=== PATIENT | male | born 1970 | race Two or more races ===

== ENCOUNTER 2024-07-30 09:33 | Outpatient (AMB) | payer MEDICAID, SELFPAY ==
--- NOTE | 2024-07-30 09:54 | PD.ORTHCLVIS ---
Vital signs 07/30/24 09:55 Height 1.88 m Height Method Stated Weight 128.934 kg Weight Measurement Method Standing Scale BMI 36.4 BP 121/78 Blood Pressure Source Automatic Cuff Blood Pressure Location Left Upper Arm Position Sitting Respiration 19 Pulse 89 Pulse Source Monitor Temp 98.0 F Temp Source Temporal Artery Scan Pulse Oximetry (%) 97 Oxygen Delivery Method Room Air Med/Allergies Allergies & Medications Allergies No Known Drug Allergies Allergy (Verified 07/30/24 09:58) Medication Reconciliation meloxicam 7.5 mg tablet 7.5 mg PO QDAY #45 tabs 08/15/23 [Rx Confirmed 07/30/24] Exam Exam Patient is in no acute distress and is cooperative with the examination today. Breathing is nonlabored. In no respiratory distress. Patient has no paraspinal tenderness. Spinal deformity [cannot] be appreciated. The gait of the patient is [nonantalgic] Bilateral extremities were evaluated and demonstrates sensation intact to light touch. Palpable pedal pulses are present. He has venous stasis in both legs Bilateral knees were examined and the patient has full strength and range of motion.. The right hip was examined. Patient was able to flex to 90 degrees, adduct to 30 degrees, abduct to 40 degrees, internally rotate to 20 degrees, and externally rotate to 20 degrees. Patient has a negative logroll. Stinchfield is negative. The patient is nontender diffusely to touch. The left hip was examined. Patient was able to flex to [90] degrees, adduct to [30] degrees, abduct to [40] degrees, internally rotate to 0 degrees, and externally rotate to [20] degrees. Patient has a Positive logroll. The stinchfield is Positive. Left hip x-rays from [facility] were reviewed by me today. This demonstrates joint space obliteration and significant osteoarthritis. These x-rays are from May 2023 Assessment and Plan Problem List (1) Unilateral primary osteoarthritis, left hip: Status: Acute Plan: Patient is a pleasant 52-year-old male with a left hip pain and left hip osteoarthritis. He has lost a rapid amount of weight. I would like to see the weight plateau. He also has venous stasis changes so I do want to see what his ejection fraction and his cardiac doctor has said regarding surgical clearance. I discussed with him that we can do a total hip replacement once his weight plateaus. I would like to see new x-rays as the last ones have been over a year and a half old. (2) Chronic left hip pain: Status: Acute Office Procedures GNS Level of Care Nursing/Assessment Patient Status: Established Patient Nursing Assessment/Reassesment: Medication Reconciliation, Update PMH in EMR and Vital Signs Coordination of Care: Complex Care and Chronic Disease 1-5, Education Complex Pt/Fam, Consent,records obtained, informed consent, Results/Orders obtained and Staff clarify orders Established Patient Charge Established Patient Point Assignment: 95 Established Patient Point Charge: EP Level 3 (80-115) MA Intake Visit Data Collection New Patient or Established: Established Patient (seen at [facility] within 3 years) Reason for Visit:: LEFT HIP PAIN Seen by Clinical Staff ONLY (RN/MA): No Associate Professor Of Economics Required: No PCP or OBGYN visit in last 3 months: Yes Hx Now: No Do You Feel Safe at Home: Yes Authorities Contacted: N/A Questionairres Past Medical History Past Medical History Have you ever been diagnosed with any of the following: Stomache/Intestinal Problems Obesity: Yes Subjective Visit Visit for: follow up visit and hip Immunization / Flu Flu Vaccine in the Last 12 Months: No Flu Vaccine Exclusion Criteria: No Exclusion Criteria History of Present Illness Chief complaint: left hip pain Patient is a 53-year-old male with severe left hip arthritis. He is lost a significant amount of weight. He hsa lost over 70 pounds. He reports that he got a cardiac clearance recently. Pain Associated signs & symptoms: none Ambulatory data Ambulatory device: none Treatments Improvement with previous injections: No Improvement with PT: No Improvement with NSAIDS: no Review of Systems Review of Systems: All systems negative unless otherwise noted in HPI.
[2024-07-30 09:55] VITALS: BP 121/78; PULSE 89; RESP 19; TEMP 36.7; O2SAT 97; BMI 36.4
== END 2024-07-30 10:17 | disposition home or self-care (01) ==
PROVIDERS: Supervising Provider Orthopaedic Surgery Adult Reconstructive Orthopaedic Surgery; Visit Provider Orthopaedic Surgery Adult Reconstructive Orthopaedic Surgery
DX: M16.12 Unilateral primary osteoarthritis, left hip (principal); M25.552 Pain in left hip; G89.29 Other chronic pain; I87.8 Other specified disorders of veins
CPT/HCPCS: 99213; G0463

== ENCOUNTER → 2024-08-06 | Outpatient (CLI) | payer MEDICAID, SELFPAY ==
--- NOTE | 2024-08-06 08:47 | XR_ITS ---
Examination:Left hip AP, lateral, AP pelvis 3 views Technique: Hip AP lateral, AP pelvis, 3 views Exam date and time:August 06, 2024 0911 hrs. Indications: Left hip pain beginning 3 years ago. Findings: Prominent osteopenia Severe left hip osteoarthritis obliteration of the joint space Subarticular lucencies and fragmentation of the femoral head consistent with advanced avascular necrosis Moderate narrowing right hip joint No fractures Impression: Severe left hip osteoarthritis Significant avascular necrosis left femoral head.
== END | disposition home or self-care (01) ==
PROVIDERS: PCP Orthopaedic Surgery Adult Reconstructive Orthopaedic Surgery; Referring Provider Orthopaedic Surgery Adult Reconstructive Orthopaedic Surgery; Visit Provider Orthopaedic Surgery Adult Reconstructive Orthopaedic Surgery
DX: M16.12 Unilateral primary osteoarthritis, left hip (principal); M87.852 Other osteonecrosis, left femur
CPT/HCPCS: 73502

== ENCOUNTER 2024-08-16 11:27 | Outpatient (AMB) | payer MEDICAID, SELFPAY ==
--- NOTE | 2024-08-16 11:34 | ORTHONT_ITS ---
Vital signs 08/16/24 11:36 Height 1.88 m Height Method Stated Weight 123.632 kg Weight Measurement Method Standing Scale BMI 34.9 BP 113/76 Blood Pressure Source Automatic Cuff Blood Pressure Location Left Upper Arm Position Sitting Respiration 18 Pulse 94 Pulse Source Monitor Temp 97.8 F Temp Source Temporal Artery Scan Pulse Oximetry (%) 98 Oxygen Delivery Method Room Air Med/Allergies Allergies & Medications Allergies No Known Drug Allergies Allergy (Verified 08/16/24 11:36) Medication Reconciliation meloxicam 7.5 mg tablet 7.5 mg PO QDAY #45 tabs 08/15/23 [Rx Confirmed 08/16/24] Exam Exam Patient is in no acute distress and is cooperative with the examination today. Breathing is nonlabored. In no respiratory distress. Patient has no paraspinal tenderness. Spinal deformity [cannot] be appreciated. The gait of the patient is [nonantalgic] Bilateral extremities were evaluated and demonstrates sensation intact to light touch. Palpable pedal pulses are present. He has venous stasis in both legs Bilateral knees were examined and the patient has full strength and range of motion.. The right hip was examined. Patient was able to flex to 90 degrees, adduct to 30 degrees, abduct to 40 degrees, internally rotate to 20 degrees, and externally rotate to 20 degrees. Patient has a negative logroll. Stinchfield is negative. The patient is nontender diffusely to touch. The left hip was examined. Patient was able to flex to [90] degrees, adduct to [30] degrees, abduct to [40] degrees, internally rotate to 0 degrees, and externally rotate to [20] degrees. Patient has a Positive logroll. The stinchfield is Positive. Xrays of the left hip demonstrate significant left hip arthritis and joint space narrowing with complete obliteration of the joint space. Assessment and Plan Problem List (1) Unilateral primary osteoarthritis, left hip: Status: Acute Plan: Patient is a pleasant 52-year-old male with a left hip pain and left hip osteoarthritis. He has lost a rapid amount of weight. His weight has plateaud and his venous stasis and edema has resolved.Fernando has lost a total of 80 pounds and is now optimized from surgery. He is no longer swollen in his legs. We will thus plan for a total hip replacement through a lateral approach. His hip will be very difficult to dislocate given the fact that he has significant arthritis and osteophytes. We will plan for the surgery this month in approximately 2 weeks. The patient lives alone and may benefit from a retirement home or rehab placement. He has significant arthritis and is using a cane and is very limited currently. The nature and purpose of the total hip replacement, alternative method(s) of treatment, the material risks involved, and the possibility of complications were fully explained to the patient. The patient does NOT have any of the following contraindications to ROSALIE: - Active infection of the hip joint, OR - Active systemic bacteremia, OR - Active skin infection or open wound at surgical site, OR - Neuropathic arthritis, OR - Severe, rapidly progressive neurological disease, OR - Severe medical condition that makes risks of the surgery outweigh the potentia l benefit The patient was told the most common risks and complications associated with a total hip replacement include, but are not limited to: blood clots in the leg, fatal pulmonary embolism, dislocation of the prosthesis, intraoperative and postoperative fractures of the femur or acetabulum, infection, failure of the prosthesis or grafting materials, complications from anesthesia, reactions to blood transfusions, postoperative leg length inequality, instability of the hip replacement, nerve damage or injury, vascular injury, delayed wound healing, infection, other injury or even . In addition, there are risks associated with anesthesia given during this operation. Also, the patient was told that after undergoing a total hip replacement there may still be persistent pain or disability. The patient was informed that the success of this operation in part depends upon the mechanical devices which are going to be implanted and that these devices can fail or malfunction, and may need to be repaired or replaced and there are no guarantees as to the longevity of this device or its parts and that it or its parts could fail prematurely. The patient was also notified that during the course of surgery, there may be a need to use bone graft from donors, and that any bone graft used will be carefully screened for communicable diseases, including AIDS, hepatitis, Erick-Creutzfeldt, or other diseases, but despite the screening procedures, there is a small chance that they could contract one of these diseases. Finally, the patient was asked to follow completely and fully with all advice and recommended treatments, and that recovery and ultimate outcome are affected by their compliance with recommended treatment. We discussed the risks, benefits and treatment alternatives, and the patient is interested in proceeding with surgery. We will try to set this up as expeditiously as possible. (2) Chronic left hip pain: Status: Acute Office Procedures GNS Level of Care Nursing/Assessment Patient Status: Established Patient Nursing Assessment/Reassesment: Medication Reconciliation, Update PMH in EMR and Vital Signs Coordination of Care: Complex Care and Chronic Disease 1-5, Education Complex Pt/Fam, Consent,records obtained, informed consent, Results/Orders obtained and Staff clarify orders Established Patient Charge Established Patient Point Assignment: 95 Established Patient Point Charge: EP Level 3 (80-115) MA Intake Visit Data Collection New Patient or Established: Established Patient (seen at [facility] within 3 years) Reason for Visit:: 2 WEEK F/U XRAYS Seen by Clinical Staff ONLY (RN/MA): No Oral Pathologist Required: No PCP or OBGYN visit in last 3 months: Yes Hx Now: No Do You Feel Safe at Home: Yes Authorities Contacted: N/A Questionairres Past Medical History Past Medical History Have you ever been diagnosed with any of the following: Respiratory Problems Smoking: No Smoking Cessation Counseling: No Smoking Exposure: No Stomache/Intestinal Problems Obesity: Yes Subjective Visit Visit for: follow up visit and x-rays (RESULTS) Immunization / Flu Flu Vaccine in the Last 12 Months: No Flu Vaccine Exclusion Criteria: No Exclusion Criteria History of Present Illness Chief complaint: left hip pain Patient is a 53-year-old male with severe left hip arthritis. He is lost a significant amount of weight. He hsa lost over 70 pounds. He reports that he got a cardiac clearance recently. Pain Pain level (0-10): 0 Associated signs & symptoms: none Ambulatory data Ambulatory device: cane Treatments Improvement with previous injections: No Improvement with PT: No Improvement with NSAIDS: no Review of Systems Review of Systems: All systems negative unless otherwise noted in HPI.
[2024-08-16 11:36] VITALS: BP 113/76; PULSE 94; RESP 18; TEMP 36.6; O2SAT 98; BMI 34.9
== END 2024-08-16 12:03 | disposition home or self-care (01) ==
LOC: HODSRG 11:27
PROVIDERS: Supervising Provider Orthopaedic Surgery Adult Reconstructive Orthopaedic Surgery; Visit Provider Orthopaedic Surgery Adult Reconstructive Orthopaedic Surgery
DX: M16.12 Unilateral primary osteoarthritis, left hip (principal); M25.552 Pain in left hip; G89.29 Other chronic pain
CPT/HCPCS: 99213; G0463

== ENCOUNTER → 2024-08-26 | Outpatient (CLI) | payer MEDICAID, SELFPAY ==
--- NOTE | 2024-08-26 08:35 | XR_ITS ---
Examination: CT bilateral lower extremities, without contrast. 2-D sagittal reconstructions. 2-D coronal reconstructions. 3-D reconstructions. Date and time of exam:August 26, 2024 0818 hours INDICATIONS: Chronic left hip pain several years CTDI: vol (mGy):27.5 DLP: (mGycm):1122 Technique: Multiple 1.25 mm axial sections of the bilateral lower extremities without intravenous contrast have been obtained. 2-D sagittal and coronal reconstructions have been obtained. 3-D reconstructions have been obtained. Low dose protocols were performed. One or more of the following dose reduction techniques were used; automated exposure control, adjustment of the mA and/or KV according to patient size, use of iterative reconstruction technique. Findings: Severe left hip osteoarthritis Prominent avascular necrosis left femoral head Moderate narrowing right hip joint Mild to moderate narrowing medial joint space right knee Mild narrowing medial joint space left knee IMPRESSION: Severe left hip osteoarthritis Avascular necrosis left femoral head
== END | disposition home or self-care (01) ==
LOC: CDIM 07:33
PROVIDERS: PCP Orthopaedic Surgery Adult Reconstructive Orthopaedic Surgery; Referring Provider Orthopaedic Surgery Adult Reconstructive Orthopaedic Surgery; Visit Provider Orthopaedic Surgery Adult Reconstructive Orthopaedic Surgery
DX: M16.12 Unilateral primary osteoarthritis, left hip (principal); M87.852 Other osteonecrosis, left femur
CPT/HCPCS: 72192; 73700

== ENCOUNTER 2024-08-28 05:35 | Day surgery (SDC) | payer MEDICAID, SELFPAY ==
[2024-08-23 14:50] VITALS: BP 136/95; PULSE 77; RESP 19; TEMP 36.4; O2SAT 96
--- NOTE | 2024-08-26 09:45 | EKG_ITS ---
[facility] Test Date: 2024-08-26 Pat Name: LUZMA ESCOBAR Department: Room: - Gender: Male Hand Ii Thermal Cutter: SANJU : 1970 Requested By: Luis F Bernard Order Number: [id number] Reading MD: Luis F Bernard Measurements Intervals Alba Rate: 82 P: 0 ID: 114 QRS: 9 QRSD: 104 T: 4 QT: 359 QTc: 420 Interpretive Statements SINUS RHYTHM WITH SHORT ID INTERVAL LOW QRS VOLTAGE IN PRECORDIAL LEADS [QRS DEFLECTION < 1.0 mV IN CHEST LEADS] No previous ECG available for comparison /[id number]/S0/[id number].pdf
[2024-08-26 10:01] VITALS: BMI 36.3
[2024-08-26 11:01] LABS: Basophils % (Auto) 0 % (0-2.5); Eosinophils # (Auto) 0.2 Thou/mm3 (0.0-0.5); Eosinophils % (Auto) 2 % (0-10); Hematocrit 47.2 % (41.0-53.0); Hemoglobin 15.5 g/dL (13.5-16.0); Immature Granulocytes % (Auto) 0 % (0-0); Immature Granulocytes Auto 0.04 Thou/mm3 (0.00-0.00); Lymphocytes % (Auto) 31 % (10-50); Mean Corpuscular HGB Conc 32.8 g/dl (31.0-37.0); Mean Corpuscular Hemoglobin 29.4 pg (25.0-35.0); Mean Corpuscular Volume 90 fL (80-100); Monocytes # (Auto) 0.6 Thou/mm3 (0.0-0.8); Monocytes % (Auto) 7 % (0-12); Neutrophils # (Auto) 5.7 Thou/mm3 (1.8-7.7); Neutrophils % (Auto) 60 % (37-80); Nucleated Red Blood Cell % 0 /100 WBC (0); Platelet Count 359 Thou/mm3 (140-440); RDW Standard Deviation 55.6 fL (35.1-43.9); Red Blood Count 5.27 Miln/mm3 (4.50-5.90); White Blood Count 9.6 Thou/mm3 (3.8-10.6)
[2024-08-26 11:06] LABS: INR 1.1 (0.9-1.3); Partial Thromboplastin Time 28.2 Seconds (22.0-36.0); Prothrombin Time 11.8 Seconds (9.0-12.2)
[2024-08-26 11:10] LABS: Alanine Aminotransferase 21 U/L (10-49); Albumin, Serum 4.6 gm/dL (3.5-5.0); Albumin/Globulin Ratio 1.4 (1.2-2.2); Alkaline Phosphatase 81 U/L (46-116); Anion Gap 9 (7-16); Aspartate Amino Transferase 22 U/L (0-34); BUN/Creatinine Ratio 21 Ratio (12-20); Bilirubin,Total 0.9 mg/dL (0.3-1.2); Blood Urea Nitrogen 15 mg/dL (9-23); Calcium 10.2 mg/dL (8.3-10.6); Calcium (Corrected) 10.2 mg/dL (8.5-10.1); Carbon Dioxide 27.2 mMol/L (20.0-31.0); Chloride 105 mMol/L (98-107); Creatinine (Component) 0.7 mg/dL (0.6-1.3); Estimated Creatinine Clearance 160.4 mL/min (>60); Globulin 3.2 gm/dL (2.3-3.5); Glucose 99 mg/dL (74-106); Osmolality,Calculated 282 (275-295); Potassium 4.3 mMol/L (3.4-5.1); Sodium 141 mMol/L (136-145); Total Protein 7.8 gm/dL (5.7-8.2); eGFR > 60 See Note
--- NOTE | 2024-08-27 15:05 | SUR.PREOP ---
Attempted to get cardiac records from [facility], faxed a request, nothing received yet.
[2024-08-28] VITALS (25 sets, daily range): BP systolic 104–136; BP diastolic 70–92; PULSE 54–97; RESP 13–95; TEMP 36.1–36.7; O2SAT 94–100; BMI 36.2
[2024-08-28] MEDS: ACETAMINOPHEN 325 MG TABLET 650 MG PO (06:44)
[2024-08-28] MEDS: MELOXICAM 7.5 MG TABLET PO (06:44)
[2024-08-28] MEDS: PREGABALIN 75 MG CAPSULE PO (06:44)
[2024-08-28] MEDS: RINGERS LACTATED 1000 ML 1,000 ML 20 ML IV (06:45)
--- NOTE | 2024-08-28 08:57 | XR_ITS ---
Examination: Left hip 2 views TECHNIQUE: AP left hip 2 views Exam date and time: August 28, 2024 0821 hours INDICATIONS: Left hip arthroplasty today. FINDINGS: Total left hip arthroplasty. Satisfactory alignment. Mild osteopenia IMPRESSION: Total left hip arthroplasty with satisfactory alignment
--- NOTE | 2024-08-28 10:15 | ESOP_ITS ---
Date of Procedure 08/28/24 Pre Op Diagnosis left hip osteoarthritis Post Op Diagnosis left hip osteoarthritis Procedure left total hip replacement joellen lateral Findings full thickness cartilage loss and extensive femoral and acetabular osteophytes Procedure Description Indications: The patient is a 53y.o. year-old with a longstanding history of left hip pain. After considering the patient's condition and the impact of their hip injury on the patient's quality of life and risks of nonoperative treatment, total hip replacement was offered as a reasonable option. Prior to the surgery I discussed the nature of the hip replacement surgery including alternatives to surgery and the purpose of, and indications for proceeding with surgery. I discussed that this surgery is a shared decision between the patient and the surgeon. Risks and benefits and alternatives of the procedure have been explained to the patient and their family. Anesthesia complications and risks include but are not limited to stroke, heart attack, and . The surgical risks include but are not limited to infection, instability/dislocation, bleeding, nerve and blood vessel injury, deep vein thrombosis, pulmonary embolus, stiffness, pain, scar, need for reoperation, leg length discrepancy, thigh numbness, weakness, and mechanical failure of the implant including loosening, metal complications, metal allergy, wear or breakage. I discussed the expected recovery from surgery and the importance of compliance with all our pre and post-operative recommen dations in order to maximize the recovery. The patient/family understands the risks of loss of life, loss of limb and, loss of function and wishes to proceed. They understand they are at increased risk for infection given their history of smoking. A signed and witnessed consent was obtained and placed in the chart. Patient Positioning: The patient was placed in the lateral decubitus position on a standard table using a pegboard. An axillary role was placed. All extremities were padded to ensure adequate protection. A contreras catheter was aseptically inserted. Time Out: A timeout was performed prior to the procedure which verified the correct patient, positioning, operation to be performed, operative site, antibiotics, allergies, imaging, and any other concerns. All parties were in agreement. Procedure in detail: The operative site was cleaned and draped in the usual sterile fashion. A final timeout was performed with all parties in agreement. A modified anterolateral approach to the hip was utilized. A 16cm skin incision was made centered over the greater trochanter in line with the femur. This was taken down through skin and subcutaneous tissue using a 10 blade. Bleeding was controlled using electrocautery. The fascia was identified and split in line with the femur. The charnley retractor was then placed. The abductor insertion was identified and a split made in the anterior 1/3 of the tendon proximally. Retractors were placed and the gluteus minimus was visualized. A capsulotomy was made down to the femoral neck anterior to the minimus. A split was then made in the anterior 1/3 of the vastus lateralis. A retractor was then placed anterior to the femoral shaft, the tendon was tagged with #1 ethibond sutures and a U-shaped split was made in the anterior 1/3 of the abductor tendon being careful to leave enough tendon to re-attach. The hip was then gently externally rotated as the anterior tissues were taken down with the tendon and capsule as one sleeve. Once the anterior tissue had been release off of bone a bone hook was placed and the hip was gently dislocated. Retractors were placed around the femoral neck and the femoral neck osteotomy was then made to freshen up the cut. The femoral head removed. The leg was then placed in extension and retractors were placed anterior and posterior to the acetabulum. The inferior capsule was release to improved visualization and the labrum and osteophytes around the acetabulum were removed. The acetabulum was then reamed to bleeding bone with adequate wall coverage and the cup was impacted into place. Screws were then placed followed by the liner which was impacted and confirmed to be seated. We then turned our attention to the femur. The leg was brought into external rotation and the femur was exposed. A canal finder was used followed by a box osteotomy and the femur was broached sequentially. The trial stem was then left in and the hip was trialed using various neck offsets and head sizes until the appropriate size was found based on leg length, stability. Once we were satisfied with the construct a cross-table AP pelvis radiograph was obtained to confirm appropriate positioning and sizing. The hip was then dislocated and the trials were then removed and the final stem impacted into placed. The hip was then again trialed and the appropriate head size identified. The zuñiga taper was then cleaned and dried and the final head impact into place and tested. The acetabulum was irrigated and confirmed to be free of debris. The hip was then reduced and taken through range of motion. The hip was stable in abduction and external rotation, adduction and external rotation, flexion past 90 degrees and internal rotation past 20 degrees. It did not sublux throughout range of motion and no impingement was detected. Leg lengths were appropriately restored based on preoperative leg lengths and intraoperative testing. . The hip was then copiously irrigated with dilute betadine followed by normal saline. The hip was then injected with the cocktail per protocol The hip was the closed in layers. The abductor tendon was closed with #1 ethibond. The fascia was closed with 0 Vicryl followed by an 0 V-lock. . The deep layer was closed with 0-Vicryl and the subcutaneous layer by a 2-0 Vicryl. The subdermal layer was closed with a 3-0 monocryl. The skin was then cleaned and dried and steri-s trips placed followed by a sterile dressing. The drapes were then taken down and the patient was placed supine. Leg lengths were confirmed to be appropriate and the patient's lower extremities were warm and well perfused with brisk capillary refill and palpable pulses. The patient was then awoken, transferred to the [facility] and taken to the PACU in stable condition. They tolerated the procedure well. The patient's family/caregiviers were made aware of their condition. Postoperative plan Activity: WBAT, no hip precautions , no active hip abduction DVT Prophylaxis: aspirin 81mg BID Antibiotics: Standard postoperative antibiotics x 24 hours Implants: [place] 60 cup, 1 screw, standard liner, 40+0 head, 10 insignia ho Anesthesia GETA Implants solitario Pathology / specimen None Pathology comment: none Estimated Blood Loss 150 Disposition same day Surgeon Ricardo Macias MD Surgical Staff Operation Date: 08/28/24 07:30 Case Staff MILL DRESSER: Benitez Sewell RNsuction plate roller hand: Pascale Costa
--- NOTE | 2024-08-28 10:18 | PD.SUROPNT ---
Date of Procedure 08/28/24 Pre Op Diagnosis left hip osteoarthritis Post Op Diagnosis left hip osteoarthritis Procedure left total hip replacement joellen lateral Findings full thickness cartilage loss and osteophytes Procedure Description Indications: The patient is a 53y.o. year-old with a longstanding history of left hip pain. After considering the patient's condition and the impact of their hip injury on the patient's quality of life and risks of nonoperative treatment, total hip replacement was offered as a reasonable option. Prior to the surgery I discussed the nature of the hip replacement surgery including alternatives to surgery and the purpose of, and indications for proceeding with surgery. I discussed that this surgery is a shared decision between the patient and the surgeon. Risks and benefits and alternatives of the procedure have been explained to the patient and their family. Anesthesia complications and risks include but are not limited to stroke, heart attack, and . The surgical risks include but are not limited to infection, instability/dislocation, bleeding, nerve and blood vessel injury, deep vein thrombosis, pulmonary embolus, stiffness, pain, scar, need for reoperation, leg length discrepancy, thigh numbness, weakness, and mechanical failure of the implant including loosening, metal complications, metal allergy, wear or breakage. I discussed the expected recovery from surgery and the importance of compliance with all our pre and post-operative recommendations in order to maximize the recovery. The patient/family understands the risks of loss of life, loss of limb and, loss of function and wishes to proceed. They understand they are at increased risk for infection given their history of smoking. A signed and witnessed consent was obtained and placed in the chart. Patient Positioning: The patient was placed in the lateral decubitus position on a standard table using a pegboard. An axillary role was placed. All extremities were padded to ensure adequate protection. A contreras catheter was aseptically inserted. Time Out: A timeout was performed prior to the procedure which verified the correct patient, positioning, operation to be performed, operative site, antibiotics, allergies, imaging, and any other concerns. All parties were in agreement. Procedure in detail: The operative site was cleaned and draped in the usual sterile fashion. A final timeout was performed with all parties in agreement. Hip array was first placed above the ASIS on the contratlateral side. A modified anterolateral approach to the hip was utilized. A 16cm skin incision was made centered over the greater trochanter in line with the femur. This was taken down through skin and subcutaneous tissue using a 10 blade. Bleeding was controlled using electrocautery. The fascia was identified and split in line with the femur. The charnley retractor was then placed. The abductor insertion was identified and a split made in the anterior 1/3 of the tendon proximally. Retractors were placed and the gluteus minimus was visualized. A capsulotomy was made down to the femoral neck anterior to the minimus. A split was then made in the anterior 1/3 of the vastus lateralis. A retractor was then placed anterior to the femoral shaft, the tendon was tagged with #1 ethibond sutures and a U-shaped split was made in the anterior 1/3 of the abductor tendon being careful to leave enough tendon to re-attach. The hip was then gently externally rotated as the anterior tissues were taken down with the tendon and capsule as one sleeve. Once the anterior tissue had been release off of bone a bone hook was placed and the hip was gently dislocated. Retractors were placed around the femoral neck and the femoral neck osteotomy was then made to freshen up the cut. The femoral head removed. The leg was then placed in extension and retractors were placed anterior and posterior to the acetabulum. The inferior capsule was release to improved visualization and the labrum and osteophytes around the acetabulum were removed. The acetabulum was then reamed to bleeding bone with adequate wall coverage and the cup was impacted into place. Both were performed with the aid of the StrongLoop robot. 1 Screw was then placed followed by the liner which was impacted and confirmed to be seated. We then turned our attention to the femur. The leg was brought into external rotation and the femur was exposed. A canal finder was used followed by a box osteotomy and the femur was broached sequentially. The trial stem was then left in and the hip was trialed using various neck offsets and head sizes until the appropriate size was found based on leg length, stability. Once we were satisfied with the construct a cross-table AP pelvis radiograph was obtained to confirm appropriate positioning and sizing. The hip was then dislocated and the trials were then removed and the final stem impacted into placed. The hip was then again trialed and the appropriate head size identified. The zuñiga taper was then cleaned and dried and the final head impact into place and tested. The acetabulum was irrigated and confirmed to be free of debris. The hip was then reduced and taken through range of motion. The hip was stable in abduction and external rotation, adduction and external rotation, flexion past 90 degrees and internal rotation past 20 degrees. It did not sublux throughout range of motion and no impingement was detected. Leg lengths were appropriately restored based on preoperative leg lengths and intraoperative testing. . The hip was then copiously irrigated with dilute betadine followed by normal saline. The hip was then injected with the cocktail per protocol The hip was the closed in layers. The abductor tendon was closed with #1 ethibond. The fascia was closed with 0 Vicryl followed by an 0 V-lock. . The deep layer was closed with 0-Vicryl and the subcutaneous layer by a 2-0 Vicryl. The subdermal layer was closed with a 3-0 monocryl. The skin was then cleaned and dried and steri-strips placed followed by a sterile dressing. The drapes were then taken down and the patient was placed supine. Leg lengths were confirmed to be appropriate and the patient's lower extremities were warm and well perfused with brisk capillary refill and palpable pulses. The patient was then awoken, transferred to the [facility] and taken to the PACU in stable condition. They tolerated the procedure well. The patient's family/caregiviers were made aware of their condition. Postoperative plan Activity: WBAT, no hip precautions , no active hip abduction DVT Prophylaxis: aspirin 81mg BID Antibiotics: Standard postoperative antibiotics x 24 hours Implants: Chanda 60 cup, 10 ho insignia, [1] screw, standard liner, 40+0 head Anesthesia GETA Implants chanda Pathology / specimen None Pathology comment: none Estimated Blood Loss 150 Surgeon Ricardo Macias MD Surgical Staff Operation Date: 08/28/24 07:30 Case Staff ALTITUDE CHAMBER TECHNICIAN: Benitez Sewell RNcounty director: Pascale Costa
--- NOTE | 2024-08-28 10:21 | XR_ITS ---
Examination:Left hip AP, lateral, AP pelvis 3 views Technique: Hip AP lateral, AP pelvis, 3 views Exam date and time:August 28, 2024 0947 hours INDICATIONS: Postop left hip replacement today. FINDINGS: Total left hip arthroplasty. Satisfactory alignment Moderate narrowing right hip joint Bones of the pelvis intact IMPRESSION: Total left hip arthroplasty with satisfactory alignment.
--- NOTE | 2024-08-28 10:40 | SUR.PHASEI ---
1040 Patient arrived to recovery resting comfortably in bed, on oxygen 8L via oxy mask with an oral airway and nasal airway in place, breathing unlabored, vital signs stable, dressing intact to left hip; prineo, telfa, abd, medipore tape, no bleeding noted, bilateral radial pulses present when palpated, bilateral dorsalis pedis pulses present when palpated, patient has good circulation to left lower extremity, skin color normal for patient and warm to touch, report received from Munira LAURA and Carlo ANAYA
--- NOTE | 2024-08-28 10:50 | SUR.PHASEI ---
1050 patient awake, post spinal anesthesia assessment via ice patient has dermatome sensation at L5 will monitor
--- NOTE | 2024-08-28 11:02 | SUR.PHASEI ---
1102 XRAY complete per MD order
--- NOTE | 2024-08-28 11:20 | SUR.PHASEII ---
1120 Post spinal anesthesia assessment complete patient has dermatome at S2 perineum
--- NOTE | 2024-08-28 12:45 | SUR.PHASEII ---
1208: pt awake, alert, able to follow commands, breathing unalbored, VS stable, dressing to left hip clean, dry, and intact, pt denies pain, report from Lashae Messer RN 1245: Report to Lashae Messer RN
--- NOTE | 2024-08-28 14:13 | SUR.PHASEII ---
1407 Report given to Terra RN, patient meets discharge criteria from recovery, awake and alert-talking with staff, breathing unlabored, vital signs stable, denies pain- states, It's just sore , dressing intact; no bleeding noted, patient eating ice cream; denies nausea 1413 Patient transported via bed to room 380 without incident, patient resting comfortably in bed with call light in reach when this fiction writer left patients room.
[2024-08-28] MEDS: metFORMIN 500 MG TABLET PO (20:18)
[2024-08-28] MEDS: amLODIPine BESYLATE 5 MG TABLET 10 MG PO (20:18)
[2024-08-28] MEDS: ASPIRIN EC 81 MG TABEC PO (20:20)
[2024-08-29 03:12] VITALS: PULSE 83; RESP 18; RESP 89; O2SAT 93
[2024-08-29 04:00] VITALS: BP 116/68; PULSE 71; RESP 18; TEMP 36.5; O2SAT 95
[2024-08-29] MEDS: oxyCODONE HCL 5 MG IR TAB 10 MG PO (07:05)
[2024-08-29 08:00] VITALS: BP 122/70; PULSE 75; RESP 18; TEMP 36.7; O2SAT 92
[2024-08-29] MEDS: metFORMIN 500 MG TABLET PO (08:17)
[2024-08-29] MEDS: PANTOPRAZOLE INJ 40 MG VIAL IV (08:17)
[2024-08-29] MEDS: ASPIRIN EC 81 MG TABEC PO (08:17)
[2024-08-29] MEDS: MELOXICAM 7.5 MG TABLET PO (08:18)
--- NOTE | 2024-08-29 10:54 | PC.NURSE ---
Per Dr. Macias, patient may be discharge once cleared by PT. Physical therapy came around 10:00 AM and stated that patient is cleared and good to go home. Discharged instructions given to the patient and papers signed at 10:30 AM. Patient waiting for his ride to go home.
[2024-08-29 12:00] VITALS: BP 125/73; PULSE 74; RESP 18; TEMP 36.7; O2SAT 93
== END 2024-08-29 12:28 | disposition home or self-care (01) ==
LOC: S2EX 10:22 → S3SX 09-02 07:43
PROVIDERS: Anesthesiology; Referring Provider Orthopaedic Surgery Adult Reconstructive Orthopaedic Surgery; Visit Provider Orthopaedic Surgery Adult Reconstructive Orthopaedic Surgery
PROC: (CPT 27130; principal; 2024-08-28 07:30)
DX: M16.12 Unilateral primary osteoarthritis, left hip (principal); Z01.810 Encounter for preprocedural cardiovascular examination
CPT/HCPCS: 27130; 20985; 36415; 73501; 73502; 80053; 85025; 85610; 85730; 87081; 93005; 94660; 97162; A4217; A4649; C1713; C1776; J0131; J1100; J2250; J2371; J2405; J2470; J2704; J3010; J3490; J7030; J7120; J7999; A4648; A9270; J1596

== ENCOUNTER 2024-10-24 12:54 | Outpatient (AMB) | payer MEDICAID, SELFPAY ==
--- NOTE | 2024-10-24 13:10 | PD.ORTHCLVIS ---
Vital signs 10/24/24 13:11 Height 1.85 m Height Method Stated Weight 115.779 kg Weight Measurement Method Standing Scale BMI 33.8 BP 127/87 H Blood Pressure Source Automatic Cuff Blood Pressure Location Right Upper Arm Position Sitting Respiration 18 Pulse 090 Pulse Source Monitor Temp 97.8 F Temp Source Temporal Artery Scan Pulse Oximetry (%) 97 Oxygen Delivery Method Room Air Med/Allergies Allergies & Medications Allergies No Known Drug Allergies Allergy (Verified 10/24/24 13:13) Medication Reconciliation meloxicam 7.5 mg tablet 7.5 mg PO QDAY #45 tabs 08/15/23 [Rx Confirmed 10/24/24] amlodipine 10 mg tablet 10 mg PO DAILY 08/26/24 [History Confirmed 10/24/24] calcium 315 mg (as citrate)-vitamin D3 5 mcg (200 unit) tablet (Calcium Citrate + D) 1 tab PO QDAY 08/26/24 [History Confirmed 10/24/24] empagliflozin 25 mg tablet (Jardiance) 25 mg PO QAM 08/26/24 [History Confirmed 10/24/24] mecobalamin (vitamin B12) 1,000 mcg chewable tablet 1,000 mcg PO QDAY 08/26/24 [History Confirmed 10/24/24] metformin 500 mg tablet 500 mg PO BID 08/26/24 [History Confirmed 10/24/24] acetaminophen 500 mg tablet (Acetaminophen Extra Strength) 1,000 mg (2 x 500 mg) PO Q6H PRN pain #90 tabs 08/28/24 [Rx Confirmed 10/24/24] aspirin 81 mg tablet,delayed release 81 mg PO BID #60 tabs 08/28/24 [Rx Confirmed 10/24/24] doxycycline hyclate 100 mg tablet 100 mg PO BID #14 tabs 08/28/24 [Rx Confirmed 10/24/24] gabapentin 300 mg capsule 300 mg PO .qhs #30 caps 08/28/24 [Rx Confirmed 10/24/24] oxycodone 5 mg tablet 5 mg PO Q6H PRN pain #28 tabs 08/28/24 [Rx Confirmed 10/24/24] sennosides 8.6 mg-docusate sodium 50 mg tablet (Senna-S) 1 tab-cap PO QDAY #30 tabs 08/28/24 [Rx Confirmed 10/24/24] Exam Exam Patient is in no acute distress and is cooperative with the examination today. Breathing is nonlabored. In no respiratory distress. Patient has no paraspinal tenderness. Spinal deformity [cannot] be appreciated. The gait of the patient is [nonantalgic] Bilateral extremities were evaluated and demonstrates sensation intact to light touch. Palpable pedal pulses are present. He has venous stasis in both legs Bilateral knees were examined and the patient has full strength and range of motion.. The right hip was examined. Patient was able to flex to 90 degrees, adduct to 30 degrees, abduct to 40 degrees, internally rotate to 20 degrees, and externally rotate to 20 degrees. Patient has a negative logroll. Stinchfield is negative. The patient is nontender diffusely to touch. The left hip was examined. Left hip incision is c/d/i Assessment and Plan Problem List (1) Unilateral primary osteoarthritis, left hip: Status: Acute Plan: Patient is a pleasant 52-year-old male with a left hip pain and left hip osteoarthritis. He has not seen me in quite a while. He is happy and would like to return to work,. He is in therapy and is very happy. We will see him in 2 months. (2) Chronic left hip pain: Status: Acute Office Procedures GNS Level of Care Nursing/Assessment Patient Status: Established Patient Nursing Assessment/Reassesment: Medication Reconciliation, Update PMH in EMR and Vital Signs Coordination of Care: Complex Care and Chronic Disease 1-5, Education Complex Pt/Fam, Consent,records obtained, informed consent, Results/Orders obtained and Staff clarify orders Established Patient Charge Established Patient Point Assignment: 95 Established Patient Point Charge: EP Level 3 (80-115) MA Intake Visit Data Collection New Patient or Established: Established Patient (seen at [facility] within 3 years) Reason for Visit:: 2 WEEK F/U XRAYS Seen by Clinical Staff ONLY (RN/MA): No Verbal consent obtained for Telemed visit?: No Granite Fabricator Required: No PCP or OBGYN visit in last 3 months: Yes Hx Now: No Do You Feel Safe at Home: Yes Authorities Contacted: N/A Questionairres Past Medical History Past Medical History Have you ever been diagnosed with any of the following: Neurological Problems Seizures: No Cardiology Problems Hypercholesterolemia: Yes Congestive Heart Failure: No Hypertension: Yes Varicose Veins: Yes Respiratory Problems Chronic Obstructive Pulmonary Disease (COPD): No Sleep Apnea: Yes Smoking: No Smoking Cessation Counseling: No Smoking Exposure: No Stomache/Intestinal Problems Hepatitis: No Obesity: Yes Genital/Urinary Problems Renal Disease: No Kidney Stones: Yes Musculoskeletal Problems Arthritis: Yes Endocrine Problems Diabetes Mellitus Type 1: No Diabetes Mellitus Type 2: Yes Psychologic Problems Recreational Drug Use: Yes (Meth, clean 120 days) Other Problems Hospitalization: Yes (surgery) Shingles: No Blood Transfusions: No Blood Transfusion Reaction: No Anesthesia Reactions: No Chicken Pox: Yes Cancer: No Subjective Visit Visit for: follow up visit, hip and x-rays (RESULTS) Immunization / Flu Flu Vaccine in the Last 12 Months: No Flu Vaccine Exclusion Criteria: No Exclusion Criteria History of Present Illness Chief complaint: left hip pain Patient is a 53-year-old male with severe left hip arthritis. He has minimal pain and is doing welll Personal History Occupation: [employer] Red flag PMH: BMI BMI Counceling provided: No Pain Pain level (0-10): 0 Associated signs & symptoms: none Ambulatory data Ambulatory device: cane and none Treatments Improvement with previous injections: No Improvement with PT: No Improvement with NSAIDS: no Review of Systems Review of Systems: All systems negative unless otherwise noted in HPI.
[2024-10-24 13:11] VITALS: BP 127/87; PULSE 090; RESP 18; TEMP 36.6; O2SAT 97; BMI 33.8
== END 2024-10-24 13:25 | disposition home or self-care (01) ==
LOC: HODSRG 12:54
PROVIDERS: Supervising Provider Orthopaedic Surgery Adult Reconstructive Orthopaedic Surgery; Visit Provider Orthopaedic Surgery Adult Reconstructive Orthopaedic Surgery
DX: M16.12 Unilateral primary osteoarthritis, left hip (principal); M25.552 Pain in left hip; G89.29 Other chronic pain; I10 Essential (primary) hypertension; E78.00 Pure hypercholesterolemia, unspecified; G47.30 Sleep apnea, unspecified; E11.9 Type 2 diabetes mellitus without complications
CPT/HCPCS: 99213; G0463

== ENCOUNTER 2024-11-05 07:54 | Outpatient (AMB) | payer MEDICAID, SELFPAY ==
[2024-11-05 08:11] VITALS: BP 128/82; PULSE 80; RESP 18; TEMP 36.6; O2SAT 98; BMI 33.1
--- NOTE | 2024-11-05 08:11 | PD.ORTHCLVIS ---
Vital signs 11/05/24 08:11 Height 1.85 m Height Method Stated Weight 113.511 kg Weight Measurement Method Standing Scale BMI 33.1 BP 128/82 Blood Pressure Source Automatic Cuff Blood Pressure Location Right Upper Arm Position Sitting Respiration 18 Pulse 80 Pulse Source Monitor Temp 97.9 F Temp Source Temporal Artery Scan Pulse Oximetry (%) 98 Oxygen Delivery Method Room Air Med/Allergies Allergies & Medications Allergies No Known Drug Allergies Allergy (Verified 11/05/24 08:12) Medication Reconciliation amlodipine 10 mg tablet 10 mg PO DAILY 08/26/24 [History Confirmed 11/05/24] Exam Exam Patient is in no acute distress and is cooperative with the examination today. Breathing is nonlabored. In no respiratory distress. Patient has no paraspinal tenderness. Spinal deformity [cannot] be appreciated. The gait of the patient is [nonantalgic] Bilateral extremities were evaluated and demonstrates sensation intact to light touch. Palpable pedal pulses are present. He has venous stasis in both legs Bilateral knees were examined and the patient has full strength and range of motion.. The right hip was examined. Patient was able to flex to 90 degrees, adduct to 30 degrees, abduct to 40 degrees, internally rotate to 20 degrees, and externally rotate to 20 degrees. Patient has a negative logroll. Stinchfield is negative. The patient is nontender diffusely to touch. The left hip was examined. Left hip incision is c/d/i [facility]-rays from [facility] reviewed. This Demonstrates a left total hip replacement in good alignment and position Assessment and Plan Problem List (1) Unilateral primary osteoarthritis, left hip: Status: Acute Plan: Patient is a pleasant 52-year-old male with a left hip pain and left hip osteoarthritis. He has not seen me in quite a while. H He is doing well status post left total hip replacement. His x-rays look great (2) Chronic left hip pain: Status: Acute Office Procedures GNS Level of Care Nursing/Assessment Patient Status: Established Patient Nursing Assessment/Reassesment: Medication Reconciliation, Update PMH in EMR and Vital Signs Coordination of Care: Complex Care and Chronic Disease 1-5, Education Complex Pt/Fam, Consent,records obtained, informed consent, Results/Orders obtained and Staff clarify orders Established Patient Charge Established Patient Point Assignment: 95 Established Patient Point Charge: EP Level 3 (80-115) FARIBA Intake Visit Data Collection New Patient or Established: Established Patient (seen at [facility] within 3 years) Reason for Visit:: F/U TKA Seen by Clinical Staff ONLY (RN/MA): No Verbal consent obtained for Telemed visit?: No Dashboard Developer Required: No PCP or OBGYN visit in last 3 months: Yes Hx Now: No Do You Feel Safe at Home: Yes Authorities Contacted: N/A Questionairres Past Medical History Past Medical History Have you ever been diagnosed with any of the following: Neurological Problems Seizures: No Cardiology Problems Hypercholesterolemia: Yes Congestive Heart Failure: No Hypertension: Yes Varicose Veins: Yes Respiratory Problems Chronic Obstructive Pulmonary Disease (COPD): No Sleep Apnea: Yes Smoking: No Smoking Cessation Counseling: No Smoking Exposure: No Stomache/Intestinal Problems Hepatitis: No Obesity: Yes Genital/Urinary Problems Renal Disease: No Kidney Stones: Yes Musculoskeletal Problems Arthritis: Yes Endocrine Problems Diabetes Mellitus Type 1: No Diabetes Mellitus Type 2: Yes Psychologic Problems Recreational Drug Use: Yes (Meth, clean 120 days) Other Problems Hospitalization: Yes (surgery) Shingles: No Blood Transfusions: No Blood Transfusion Reaction: No Anesthesia Reactions: No Chicken Pox: Yes Cancer: No Subjective Visit Visit for: follow up visit and hip Immunization / Flu Flu Vaccine in the Last 12 Months: Yes Flu Vaccine Exclusion Criteria: Already Received History of Present Illness Chief complaint: F/U TKA Patient is a 53-year-old male with severe left hip arthritis. He has minimal pain and is doing well. He is 2 months from his left ROSALIE at this point Personal History Occupation: [employer] Red flag PMH: BMI BMI Counceling provided: Yes Pain Pain level (0-10): 0 Pain duration: NONE Associated signs & symptoms: none Ambulatory data Ambulatory device: none Treatments Improvement with previous injections: No Improvement with PT: No Improvement with NSAIDS: no Review of Systems Review of Systems: All systems negative unless otherwise noted in HPI.
== END 2024-11-05 08:21 | disposition home or self-care (01) ==
LOC: HODSRG 07:54
PROVIDERS: Supervising Provider Orthopaedic Surgery Adult Reconstructive Orthopaedic Surgery; Visit Provider Orthopaedic Surgery Adult Reconstructive Orthopaedic Surgery
DX: M16.12 Unilateral primary osteoarthritis, left hip (principal); M25.552 Pain in left hip; G89.29 Other chronic pain; I10 Essential (primary) hypertension; E78.00 Pure hypercholesterolemia, unspecified; E11.9 Type 2 diabetes mellitus without complications; Z96.642 Presence of left artificial hip joint
CPT/HCPCS: 99213; G0463